=== PATIENT | female | born 1960 | race Caucasian/White ===

== ENCOUNTER → 2017-10-13 | Emergency (ER) | payer OTHER ==
[~2017-10-13] VITALS: Ht 144.8 cm; Wt 57.2 kg
[~2017-10-13] MED LIST: ATENOLOL50 MG PO; MAXIDEX15 ML OP; NAPR500T14 PO; NEURONTIN300 MG; RELAFEN PO
== END | disposition left against medical advice (07) ==
LOC: ER 12:16
DX: Z53.20 Procedure and treatment not carried out because of patient's decision for unspecified reasons (principal)

== ENCOUNTER → 2017-10-28 09:00 | Outpatient (CLI) | payer OTHER ==
[~2017-10-28 09:00] MED LIST changes: +LOPRESSOR25 MG; +MAXIDEX5 ML OP; +PROTONIX40 MG PO; +ULTRACET PO
== END | disposition home or self-care (01) ==
LOC: EKG 09:00 → ADM 14:15 → CIR.AMB 11-04 14:15 → EDSTATUS 11-04 14:15 → CIR.AMB 11-04 15:30
DX: K80.20 Calculus of gallbladder without cholecystitis without obstruction (principal); Z01.810 Encounter for preprocedural cardiovascular examination

== ENCOUNTER 2017-10-30 07:04 | Inpatient (IN) | payer OTHER ==
[~2017-10-30] VITALS: Ht 127 cm; Wt 57.2 kg
[~2017-10-30 07:04] MED LIST changes: -LOPRESSOR25 MG; -PROTONIX40 MG PO; -ULTRACET PO
[2017-10-30] MEDS ORDERED: LOPRESSOR25 MG (07:16)
[2017-11-01] MEDS ORDERED: ULTRACET PO (10:51)
[2017-11-01] MEDS ORDERED: PROTONIX40 MG PO (10:51)
== END 2017-11-01 12:03 | disposition home or self-care (01) | DRG 419 ==
LOC: ER 07:04 → SEC-K 23:00 → SURH 23:00
PROC: 0FT44ZZ Resection of Gallbladder, Percutaneous Endoscopic Approach (ICD-10-PCS; principal; 2017-10-30)
PROC: BF13YZZ Fluoroscopy of Gallbladder and Bile Ducts using Other Contrast (ICD-10-PCS; 2017-10-30)
PROC: BW40ZZZ Ultrasonography of Abdomen (ICD-10-PCS; 2017-10-30)
DX: K80.10 Calculus of gallbladder with chronic cholecystitis without obstruction (principal); I10 Essential (primary) hypertension; E87.6 Hypokalemia

== ENCOUNTER 2021-01-18 07:53 | Outpatient (CLI) | payer OTHER ==
[~2021-01-18 07:53] MED LIST changes: +LOPRESSOR25 MG; +PROTONIX40 MG PO; +ULTRACET PO
== END 2021-01-18 07:54 | disposition home or self-care (01) ==
LOC: NUCLEAR 07:53
PROVIDERS: ATTEND Internal Medicine Cardiovascular Disease
DX: I50.1 Left ventricular failure, unspecified (principal)
CPT/HCPCS: 78452; 93017; A9500